=== PATIENT | male | born 1990 | race Caucasian/White ===

== ENCOUNTER 2025-02-17 22:17 | Emergency (ER) | payer OTHER ==
[~2025-02-17] VITALS: Ht 172.7 cm; Wt 73.0 kg
[2025-02-17 22:18] VITALS: BP 137/89; PULSE 83; RESP 18; TEMP 36.8; O2SAT 99
== END 2025-02-17 22:46 | disposition home or self-care (01) ==
LOC: ER 22:17
DX: R68.83 Chills (without fever) (principal); F15.90 Other stimulant use, unspecified, uncomplicated
CPT/HCPCS: 99283